=== PATIENT | male | born 1980 | race Caucasian/White ===

== ENCOUNTER → 2017-01-23 | Outpatient (CLI) | payer OTHER | LOC: MHCPAIN 14:56 | DX: G89.29 Other chronic pain (principal); M47.22 Other spondylosis with radiculopathy, cervical region; R51 Headache; M54.81 Occipital neuralgia; G95.89 Other specified diseases of spinal cord | CPT/HCPCS: G0463 ==

== ENCOUNTER → 2017-02-28 | Outpatient (CLI) | payer OTHER | LOC: MHCPAIN 15:39 | DX: G89.29 Other chronic pain (principal); M50.121 Cervical disc disorder at C4-C5 level with radiculopathy; R51 Headache; G95.89 Other specified diseases of spinal cord | CPT/HCPCS: G0463 ==

== ENCOUNTER → 2017-04-20 | Outpatient (CLI) | payer OTHER, MEDICAID | LOC: MHCPAIN 10:20 | DX: G89.29 Other chronic pain (principal); M50.121 Cervical disc disorder at C4-C5 level with radiculopathy; M54.81 Occipital neuralgia; R51 Headache; M96.1 Postlaminectomy syndrome, not elsewhere classified | CPT/HCPCS: G0463 ==

== ENCOUNTER → 2017-06-18 | Outpatient (CLI) | payer OTHER, MEDICAID | LOC: MHCPAIN 10:00 | DX: G89.29 Other chronic pain (principal); M50.30 Other cervical disc degeneration, unspecified cervical region; M54.81 Occipital neuralgia; G95.89 Other specified diseases of spinal cord | CPT/HCPCS: G0463 ==

== ENCOUNTER → 2017-08-15 | Outpatient (CLI) | payer OTHER, MEDICAID | LOC: MHCPAIN 15:44 | DX: G89.29 Other chronic pain (principal); M50.90 Cervical disc disorder, unspecified, unspecified cervical region; M54.12 Radiculopathy, cervical region; M54.81 Occipital neuralgia; R51 Headache; G95.9 Disease of spinal cord, unspecified; M96.1 Postlaminectomy syndrome, not elsewhere classified | CPT/HCPCS: G0463 ==

== ENCOUNTER → 2017-10-12 | Outpatient (CLI) | payer OTHER, MEDICAID | LOC: MHCPAIN 09:26 | DX: G89.29 Other chronic pain (principal); M50.90 Cervical disc disorder, unspecified, unspecified cervical region; M54.12 Radiculopathy, cervical region; M54.81 Occipital neuralgia; M96.1 Postlaminectomy syndrome, not elsewhere classified; R51 Headache; G95.89 Other specified diseases of spinal cord | CPT/HCPCS: G0463 ==

== ENCOUNTER → 2018-01-02 | Outpatient (CLI) | payer OTHER, MEDICAID | LOC: MHCPAIN 07:49 | DX: G89.29 Other chronic pain (principal); M50.90 Cervical disc disorder, unspecified, unspecified cervical region; M54.12 Radiculopathy, cervical region; M54.81 Occipital neuralgia; R51 Headache; G95.9 Disease of spinal cord, unspecified; M96.1 Postlaminectomy syndrome, not elsewhere classified | CPT/HCPCS: G0463 ==

== ENCOUNTER → 2018-02-27 | Outpatient (CLI) | payer OTHER, MEDICAID | LOC: MHCPAIN 08:12 | DX: G89.29 Other chronic pain (principal); M54.12 Radiculopathy, cervical region; M54.81 Occipital neuralgia; R51 Headache; M47.812 Spondylosis without myelopathy or radiculopathy, cervical region; M96.1 Postlaminectomy syndrome, not elsewhere classified | CPT/HCPCS: G0463 ==

== ENCOUNTER → 2018-05-01 | Outpatient (CLI) | payer OTHER, MEDICAID | LOC: MHCPAIN 14:06 | DX: G89.29 Other chronic pain (principal); M54.12 Radiculopathy, cervical region; M54.81 Occipital neuralgia; R51 Headache; M47.812 Spondylosis without myelopathy or radiculopathy, cervical region; M96.1 Postlaminectomy syndrome, not elsewhere classified; G95.9 Disease of spinal cord, unspecified | CPT/HCPCS: G0463 ==

== ENCOUNTER → 2018-07-01 | Outpatient (CLI) | payer OTHER, MEDICAID | LOC: MHCPAIN 08:59 | DX: G89.29 Other chronic pain (principal); M54.12 Radiculopathy, cervical region; M54.81 Occipital neuralgia; R51 Headache; M47.812 Spondylosis without myelopathy or radiculopathy, cervical region; G95.89 Other specified diseases of spinal cord; M96.1 Postlaminectomy syndrome, not elsewhere classified | CPT/HCPCS: G0463 ==

== ENCOUNTER → 2018-08-27 | Outpatient (CLI) | payer OTHER, MEDICAID | LOC: MHCPAIN 09:39 | DX: G89.29 Other chronic pain (principal); M54.12 Radiculopathy, cervical region; M54.81 Occipital neuralgia; R51 Headache; M47.812 Spondylosis without myelopathy or radiculopathy, cervical region | CPT/HCPCS: G0463 ==

== ENCOUNTER → 2018-11-19 | Outpatient (CLI) | payer OTHER, MEDICAID | LOC: MHCPAIN 10:14 | DX: G89.29 Other chronic pain (principal); M54.12 Radiculopathy, cervical region; M54.81 Occipital neuralgia; M47.812 Spondylosis without myelopathy or radiculopathy, cervical region | CPT/HCPCS: G0463 ==

== ENCOUNTER → 2019-02-18 | Outpatient (CLI) | payer OTHER, MEDICAID | LOC: MHCPAIN 10:34 | DX: M54.12 Radiculopathy, cervical region (principal); M54.81 Occipital neuralgia | CPT/HCPCS: G0463 ==

== ENCOUNTER → 2019-05-13 | Outpatient (CLI) | payer MEDICAID | LOC: MHCPAIN 11:08 | DX: M54.12 Radiculopathy, cervical region (principal); M54.81 Occipital neuralgia; M96.1 Postlaminectomy syndrome, not elsewhere classified | CPT/HCPCS: G0463 ==